=== PATIENT | male | born 1955 | race Caucasian/White ===

== ENCOUNTER 2020-12-31 12:52 | Outpatient (CLI) | payer MEDICARE, SELFPAY ==
[2020-12-31 14:26] LABS: INR 1.9
[2020-12-31 17:15] LABS: Hemoglobin A1C 6.6 % (<5.7)
== END 2020-12-31 12:53 | disposition home or self-care (01) ==
LOC: ANHSURGERY 12:56
PROVIDERS: Anesthesiology; PCP Family Medicine; Visit Provider Orthopaedic Surgery
DX: Z01.818 Encounter for other preprocedural examination (principal); M17.11 Unilateral primary osteoarthritis, right knee; Z79.01 Long term (current) use of anticoagulants
CPT/HCPCS: 36415; 83036; 85610; 85730; 87081

== ENCOUNTER → 2021-01-14 03:34 | Outpatient (CLI) | payer MEDICARE, SELFPAY ==
[2021-01-15 01:23] LABS: SARS-CoV-2 RNA PCR Negative
== END ==
PROVIDERS: PCP Family Medicine; Visit Provider Orthopaedic Surgery
DX: Z01.812 Encounter for preprocedural laboratory examination (principal); Z20.822 Contact with and (suspected) exposure to COVID-19
CPT/HCPCS: C9803; U0003; U0005

== ENCOUNTER 2021-01-17 01:10 | Day surgery (SDC) | payer MEDICARE, SELFPAY ==
[2020-12-31 12:59] VITALS: BMI 35.4
[2020-12-31 14:06] VITALS: BP 123/69; PULSE 85; RESP 16; TEMP 36.7; O2SAT 97
--- NOTE | 2021-01-16 16:06 | WPDANESEPPF ---
Anes - Initial Pre Proc Eval Procedure: Operation Date: 01/17/21 07:30 Proposed Procedures p Right Total Knee Arthroplasty - Enzo Winston MD Date/Time: 01/16/21 16:06 Surgeon: Enzo Winston MD Pre Op Diagnosis: primary OA Right Knee Patient Data Age: 65 Gender: M Height: 1.88 m Weight: 125 kg Last Vital Signs Temp 36.7 C 12/31/20 14:06 Pulse 85 12/31/20 14:06 Resp 16 12/31/20 14:06 BP 123/69 12/31/20 14:06 Pulse Ox 97 12/31/20 14:06 Allergies Allergy/AdvReac Type Severity Reaction Status Date / Time cefuroxime [From Ceftin] AdvReac Severe Hives Verified 01/17/21 06:25 tramadol AdvReac Severe Hives Verified 01/17/21 06:25 Home Medications Medication Instructions Recorded Confirmed Type aspirin 81 mg tablet,delayed 81 mg PO DAILY 05/29/20 01/17/21 History release calcium carbonate 600 mg calcium 600 mg PO DAILY 05/29/20 01/17/21 History (1,500 mg) tablet furosemide 40 mg tablet 40 mg PO BID 05/29/20 01/17/21 History metformin 500 mg tablet 500 mg PO DAILY 05/29/20 01/17/21 History multivitamin 1 tablet PO DAILY 05/29/20 01/17/21 History omega-3 fatty acids 1,000 mg 1,000 mg PO DAILY 05/29/20 01/17/21 History capsule potassium chloride 10 mEq 10 meq PO DAILY 05/29/20 01/17/21 History tablet,extended release warfarin 6 mg tablet 7 mg PO DAILY 05/29/20 01/17/21 History albuterol 90 mcg INHALATION PRN PRN 12/31/20 01/17/21 History diltiazem HCl 180 mg 240 mg PO DAILY cap 12/31/20 01/17/21 History capsule,extended release 24 hr oxycodone-acetaminophen 5 mg-325 1 tablet PO Q6H PRN 12/31/20 01/17/21 History mg tablet Patient hx anesthesia problems: none Family hx anesthesia problems: none PMFSH Past Medical History Medical History Afib COPD (chronic obstructive pulmonary disease) Diabetes Hypertension Surgical History Surgical History History of ankle surgery Lt ankle repair 1976 Lt ankle fused 2015 History of ankle surgery Rt ankle repair 1992 Rt ankle hardware removal 1993 History of arthroscopy of left knee (~1995) 1995 & 1997 History of arthroscopy of right knee (~2007) History of back surgery (~2012) Rods and screws put in History of elbow surgery (~2005) Left History of left knee surgery Metal plate 2002 History of repair of left rotator cuff (~1995) 1995 & 2005 History of repair of right rotator cuff (~1997) History of total knee arthroplasty (~2003) Left Hx of hammer toe correction (~1994) Social History Social History (Updated 01/17/21 @ 07:17 by Sharif Muller, ) Smoking packs per day: 1.5 Smoking cigarettes per day: 30.0 Years smoked: 20 Smoking pack-years: 30.00 Smoking status: Former smoker Tobacco type: cigarettes Smoking end date: 05/25/17 Additional smoking assessment comments: DENIES ANY FORM OF TOBACCO USE Alcohol intake: current Alcohol use details: 12-15 light beers/day Living arrangements: alone Spiritual care concerns: No Anes - Eval Final PreProcedure Day of Procedure 01/16/21 16:06 Patient weight: obese Heart: regular rate and rhythm Lungs: clear to auscultation and normal air movement Airway: Mallampati scale class II and special considerations poor dentition Neurological: alert and oriented Last oral intake: >/= 8 hours ASA classification: III Emergent: no Anesthetic plan: proceed Anesthesia type and monitoring: general LMA and standard monitoring Informed Consent: The patient's anesthetic plan and its attendant risks and benefits were discussed with the patient/family/POA. Questions were solicited and answers provided to the satisfaction of the patient/family/POA.
--- NOTE | 2021-01-16 16:07 | WPDANESPNB ---
Anes - Peripheral Nerve Block Date/Time: 01/16/21 16:07 <Sharif Muller DO - Last Filed: 01/16/21 16:07> I have discussed with the patient/family/POA the placement of a peripheral nerve block for post-operative pain management, including associated risks, benefits, complications, and side effects. Alternative methods of post-operative analgesia were detailed. Questions were solicited and answers provided to the satisfaction of the patient/family/POA. <Sharif Muller DO - Last Filed: 01/16/21 16:07> Time-Out: A pre-procedural Time-Out was completed immediately before starting the procedure and confirmed: Patient Identification, Site, Procedure, Patient Position and the Availability of Requisite Equipment. <Sharif Muller DO - Last Filed: 01/16/21 16:07> Clinical Indications: Acute post-operative pain management requested by the operative surgeon. <Sharif Muller DO - Last Filed: 01/16/21 16:07> Nerve Block Insertion Note Anes-nerve block: adductor canal <Sharif Muller DO - Last Filed: 01/16/21 16:07> adductor canal right <Jose Berry MD - Last Filed: 01/17/21 07:26> Patient position: supine <Sharif Muller DO - Last Filed: 01/16/21 16:07> supine <Jose Berry MD - Last Filed: 01/17/21 07:26> Skin prep: chlorhexidine <Sharif Muller DO - Last Filed: 01/16/21 16:07> chlorhexidine <Jose Berry MD - Last Filed: 01/17/21 07:26> Needle: 22 gauge, stimulating, insulated echogenic needle. <Sharif Muller DO - Last Filed: 01/16/21 16:07> Needle length: 80 mm <Sharif Muller DO - Last Filed: 01/16/21 16:07> 80 mm <Jose Berry MD - Last Filed: 01/17/21 07:26> Technique: ultrasound <Sharif Muller DO - Last Filed: 01/16/21 16:07> ultrasound <Jose Berry MD - Last Filed: 01/17/21 07:26> Technique comment: in plane <Jose Berry MD - Last Filed: 01/17/21 07:26> Injectate: bupivacaine 0.5% with epi 5 mcg/ml (30cc - no epi) <Sharif Muller DO - Last Filed: 01/16/21 16:07> bupivacaine 0.5% with epi 5 mcg/ml (30cc) <Jose Berry MD - Last Filed: 01/17/21 07:26> Observations: tolerated well <Sharif Muller DO - Last Filed: 01/16/21 16:07> tolerated well <Jose Berry MD - Last Filed: 01/17/21 07:26> Complications: none <Sharif Muller DO - Last Filed: 01/16/21 16:07> none <Jose Berry MD - Last Filed: 01/17/21 07:26> Procedure start time:: 722 <Joes Berry MD - Last Filed: 01/17/21 07:26> Procedure end time:: 726 <Jose Berry MD - Last Filed: 01/17/21 07:26>
[2021-01-17] VITALS (17 sets, daily range): BP systolic 116–164; BP diastolic 69–99; PULSE 67–92; RESP 14–20; TEMP 35.9–36.7; O2SAT 85–99
--- NOTE | ~2021-01-17 | XR_ITS ---
EXAMINATION: XR knee RT 2V DATE: 01/17/2021 11:08 INDICATION: Right knee arthroplasty. Postop. TECHNIQUE: 2 views of right knee were obtained. COMPARISON: Right knee radiographs 07/12/2020 FINDINGS: There is a total right knee arthroplasty with patellar resurfacing in near-anatomic alignme nt. No fracture. There is gas in the knee joint and soft tissues, consistent with recent surgery. IMPRESSION: 1. Total right knee arthroplasty in near-anatomic alignment. Reviewed, dictated and finalized at location A.
[2021-01-17] MEDS: ACETAMINOPHEN 500 MG TABLET 1000 MG PO (06:30)
[2021-01-17] MEDS: LACTATED RINGERS 1,000 ML 30 ML IV CONT ×2 (06:50→11:13)
[2021-01-17 07:03] LABS: Glucose Point of Care 159 mg/dl (65-105)
[2021-01-17] MEDS: TRANEXAMIC ACID 1,000MG/ISO100 1,000 MG/100 ML BAG 200 MG IVPB (07:05)
--- NOTE | 2021-01-17 07:18 | WPDHPUPDATE1 ---
History and Physical Update Update Date/Time: 01/17/21 07:18 History and Physical has been reviewed, including an updated exam of the patient. There are NO changes in the patient's condition. Risks, benefits, and alternatives have been discussed and questions answered. Patient agrees to proceed with procedure.
[2021-01-17] MEDS: ceFAZolin SODIUM 1 GM VIAL 2 GM IV PUSH (07:43)
--- NOTE | 2021-01-17 08:16 | SUR.PREOP ---
0630-PT STATES FELL ON 12/29/2020 W/INJURY TO BACK, NECK, AND LEFT HIP-STATES HAD ER VISIT AND NO FRACTURES WERE DETECTED. STATES DR. JENSEN IS AWARE OF FALL.
[2021-01-17] MEDS: GENTAMICIN BONE CEMENT REFOBACIN 1 EACH TOPICAL (10:04)
--- NOTE | 2021-01-17 10:58 | W.PM.PROC2 ---
Procedure Note - Detailed Date of Procedure 01/17/21 Pre-op Diagnosis primary OA Right Knee Post-op Diagnosis same Procedure Performed Total knee arthroplasty, right. Surgeon Enzo Winston MD Insurance Broker Jo Ann Crowley PA-C Anesthesia general and regional (Subsartorial block.) Indications Severe end-stage valgus arthritis with significant deformity. Failed conservative treatment. Findings Complex arthroplasty. Evidence for chronic MCL insufficiency. Severe valgus deformity. Large lateral release required. Moderate residual MCL laxity managed with total stabilizing polyethylene insert. Bone quality was excellent. The femur was placed at 5? valgus. Preop motion was 5? to 95? with 20 degree valgus deformity. Postoperative motion 0-125 degrees. Description of Procedure OPERATIVE DETAILS: The patient was given a nerve block preoperatively, and then brought to the operating room. A general anesthetic was administered. The leg was prepped and draped in the usual sterile fashion. The limb was elevated and the tourniquet inflated to 300 mmHg during the procedure. A longitudinal incision was created along the medial border of the patella and patellar tendon, and a medial parapatellar approach to the knee was performed. No medial release was taken due to the valgus deformity and MCL laxity. Significant scar and osteophytes were in the MCL and medial capsule. Theses were removed cautiously. The knee was then flexed. The osteophytes were carefully removed. The intramedullary guide was placed in the femoral canal. The distal femoral resection was then taken with the oscillating saw. The collateral ligaments were carefully protected. The tibia was carefully exposed. The jig was applied, and the proximal tibia was resected according to the preoperative plan. The knee was balanced in extension. The medial laxity was apparent. Significant lateral release was required with pie crusting the LCL both at the tibia side and at the femoral attachment. Popliteus was excised. The iliotibial band was also released. The anterior cruciate ligament and meniscal remnants were removed. The posterior cruciate ligament was sacrificed. The patella was measured. Patellar resection was carried out with the oscillating saw. The femur was sized and rotation assessed using a combination of gap balancing, posterior referencing, and the AP axis. The 4 in 1 cutting block, and the box cut guide were used to finish the femoral cuts after equal gaps were assured. The osteophytes were carefully removed from the back of the knee. The knee was copiously irrigated with antibiotic solution periodically throughout the procedure. The meniscal remnants were removed. The spacer block was used to confirm equal flexion and extension gaps. Trialing was performed to confirm tibial rotation. Further lateral release was performed. He was clear that the 13 mm poly was possible but that 16 mm poly was not reasonable for the lateral side. The MCL remains moderately lax with the 13 poly. It was elected to support the MCL with a total stabilizing poly insert. The tibia was sized and broached. Central drilling for the short stem was performed. The bony surfaces were prepared for cementing with pulsatile lavage. The real components were cemented. Excess cement was carefully removed. Patellar tracking was carefully assessed. No additional releases were required. The real 13 mm TS poly insert was placed. The wound was closed with #1 Vicryl suture, #2 Quill suture, 0-Quill suture, and 2-0 Quill suture followed by Steri-Strips. A sterile bulky dressing was applied. Meticulous hemostasis was maintained throughout the procedure. There were no complications. The patient was extubated and brought to the recovery room in stable condition after the application of sterile dressing with Adonay bandage. Physician assistant spa director, Jo Ann Crowley PA-C, required for surgery; including patient positioning, draping, tis
[2021-01-17 11:04] LABS: Glucose Point of Care 182 mg/dl (65-105)
--- NOTE | 2021-01-17 13:20 | ADMGEN ---
This patient, Wiliam Alvarez , was admitted to Medical Room 257-01. Patient/family oriented to hospital policies and general routines including ID bracelet, bed and alarms, visiting hours, pain management, procedures, bathroom and other care routines, personal items, smoking policy, room service/diet, and visiting hours. Information on how to activate the Rapid Response Team has been discussed. Patient/Family are encouraged to report perceived risks to care and to ask questions if they do not understand what they are told or what they should do.
[2021-01-17] MEDS: ceFAZolin 2 GM/D5W 50 ML 2 GM/50 ML BAG IVPB ×2 (14:19→22:35)
[2021-01-17 14:36] LABS: Glucose Point of Care 169 mg/dl (65-105)
[2021-01-17] MEDS: oxyCODONE HCL (*CRX) 5 MG TAB IR PO ×2 (14:49→20:11)
--- NOTE | 2021-01-17 15:47 | PM.IMCN ---
Assessment and Plan Assessment and plan (1) Obesity (BMI 30.0-34.9): Code(s): E66.9 - Obesity, unspecified Status: Acute (2) Emphysema lung: Code(s): J43.9 - Emphysema, unspecified Status: Acute Additional Plan This is a 65-year-old gentleman with a past medical history of atrial fibrillation, ex- chronic smoker, COPD disease/panlobular emphysema, current ETOH use, obesity who is currently admitted after a right knee total arthroplasty. The hospital medicine service is consulted for management of his chronic conditions. 1. Atrial fibrillation: Currently rate control with diltiazem continue diltiazem 240 mg p.o. q.d. Continue chronic anticoagulation with warfarin 7 mg p.o. daily. We will monitor his INR closely. 2. Chronic COPD not previously on oxygen at home. I would patient only uses in a PRN albuterol inhaler as needed twice per month pureed continue albuterol inhaler every 4 hours as needed. 3. Fws-lsvhhni-okorlyiob diabetes mellitus; please see well controlled on metformin monotherapy at home. Most recent Hba1c 6.6 1 week ago. Hold metformin while admitted to the hospital. I would start insulin sliding scale coverage coma mealtime insulin and basal insulin. Monitor his Accu-Cheks closely. 4. Obesity calculated BMI is 35.4. I would recommend low-calorie diet and exercise upon discharge. 5. Chronic alcohol use: with documented 12-15 light beers per day. Start CIWA protocol. I would monitor the mental status closely while in the hospital. Maintain fall and seizures precautions. Counseling about alcohol consumption reduction. 6. GI prophylaxis not indicated. 7. DVT prophylaxis patient is already on Coumadin at 7 mg p.o. daily. I would will monitor his INR closely. HPI Data of Consult Consult date: 01/17/21 Requesting Physician: Enzo Winston MD Primary Care Provider: Chris NoeMD Consult Narrative Narrative: Wiliam Alvarez Sr. is a 65 year old gentleman with a past medical history including but not limited to atrial fibrillation on chronic anticoagulation with Coumadin, COPD/ panbular emphysema, ex chronic smoker who stopped 3 years ago, obesity, eta-dsscncr-slhztfkyf diabetes mellitus, currently admitted status post right knee total arthroplasty. The hospital medicine service is consulted for management of his chronic conditions. The patient cheryl examined the bedside in the seated position after his orthopedic procedure. He is reporting chronic neck and left hip pain. I would he reports good control of his postoperative pain and rates surgical incision pain at 3/10. There is no active complaint. Patient is pleasant and conversant. Review of Systems Review of Systems: CONSTITUTIONAL: Negative for any fevers, chills, night sweats, tiredness, fatigue, malaise, anorexia or weight loss. CARDIOVASCULAR: Negative for chest pain, palpitations, dizziness, orthopnea. Mild lower extremity edema. RESPIRATORY: Negative for shortness of breath, cough, wheezing, sputum. GENITOURINARY: Negative for frequency, nocturia, dysuria, hematuria. HEMATOLOGIC: Negative for any abnormal bleeding or bruising. MUSCULOSKELETAL: Negative for joint swelling, stiffness or pain. Right knee with post surgical dressing. SKIN: Negative for rashes, eruptions, lesions or dryness. NEUROLOGIC: Negative for any focal neurologic complaints. PSYCHIATRIC: Negative for anxiety, panic, depression. [facility] Past Medical History Medical History Afib COPD (chronic obstructive pulmonary disease) Diabetes Hypertension Surgical History Surgical History History of ankle surgery Lt ankle repair 1976 Lt ankle fused 2015 History of ankle surgery Rt ankle repair 1992 Rt ankle hardware removal 1993 History of arthroscopy of left knee (~1995) 1995 & 1997 History of arthroscopy of right knee (
[2021-01-17] MEDS: MELOXICAM 7.5 MG TABLET PO (16:14)
[2021-01-17] MEDS: FUROSEMIDE 40 MG TABLET PO (16:14)
[2021-01-17] MEDS: WARFARIN (*PBKC) 4 MG TABLET PO (16:14)
[2021-01-17] MEDS: WARFARIN (*PBKC) 3 MG TABLET PO (16:14)
[2021-01-17 17:20] LABS: Glucose Point of Care 208 mg/dl (65-105)
[2021-01-17] MEDS: INSULIN ASPART (*BKC) 100 UNITS/ML SUB-Q (17:22)
[2021-01-17] MEDS: FAMOTIDINE 20 MG TABLET PO (20:10)
[2021-01-17] MEDS: SENNOSIDES 8.6 MG TABLET 17.2 MG PO (20:11)
[2021-01-17] MEDS: INSULIN GLARGINE (*BKC) 100 UNITS/ML 12 UNITS SUB-Q (20:14)
[2021-01-17 20:27] LABS: Glucose Point of Care 141 mg/dl (65-105)
[2021-01-18] VITALS: BP 125/82
[2021-01-18 00:08] VITALS: BP 125/82; PULSE 86; RESP 20; TEMP 36.2; O2SAT 95
[2021-01-18 05:21] VITALS: BP 151/81; PULSE 72; RESP 20; TEMP 36.1; O2SAT 91
[2021-01-18 06:10] LABS: Basophils Percent Auto 0.4 % (0.2-1.2); Eosinophils Percent Auto 0.2 % (0-4.4); Hematocrit 40.4 % (42.0-52.0); Hemoglobin 13.1 g/dL (14.0-18.0); Immature Granulocyte Absolute 0.04 K/mm3 (0.00-0.031); Immature Granulocyte Percent A 0.4 % (0-0.5); Lymphocytes Absolute Auto 1.23 K/mm3 (0.9-3.2); Lymphocytes Percent Auto 12.2 % (18.3-44.2); Mean Corpuscular HGB Conc 32.4 g/dl (32-36); Mean Corpuscular Hemoglobin 33.4 pg (26-34); Mean Corpuscular Volume 103.1 fl (80-100); Mean Platelet Volume 9.3 fl (7.4-10.4); Monocytes Absolute Auto 1.2 K/mm3 (0.1-0.6); Neutrophils Absolute Auto 7.6 K/mm3 (1.3-6.7); Neutrophils Percent Auto 74.8 % (45.5-73.1); Platelet Count Result 188 k/mm3 (150-375); Red Blood Count 3.92 M/mm3 (4.6-6.20); Red Cell Distribution Width 12.7 % (11.5-14.5); White Blood Count 10.1 K/mm3 (4.5-10.0)
[2021-01-18 06:18] LABS: INR 1.1; Prothrombin Time 13.6 Seconds (11.1-14.7)
[2021-01-18] MEDS: ceFAZolin 2 GM/D5W 50 ML 2 GM/50 ML BAG IVPB (06:18)
[2021-01-18 06:28] LABS: Anion Gap 1 mmol/L (8-16); Blood Urea Nitrogen 29 mg/dL (9-20); Calcium 8.5 mg/dL (8.4-10.2); Carbon Dioxide 36 mmol/L (22-30); Chloride 99 mmol/L (98-107); Estimated CRCL calculation 101 ml/min; Estimated Glomerular Filt Rate > 60; Glucose 137 mg/dL (65-110); Potassium 4.9 mmol/L (3.4-5.0); Sodium 136 mmol/L (137-145)
[2021-01-18 07:24] LABS: Glucose Point of Care 124 mg/dl (65-105)
[2021-01-18] MEDS: FUROSEMIDE 40 MG TABLET PO (07:52)
[2021-01-18] MEDS: FAMOTIDINE 20 MG TABLET PO (07:52)
[2021-01-18] MEDS: OMEGA 3 POLYUNSAT FATTY ACIDS 1 GM CAP PO (07:52)
[2021-01-18] MEDS: MULTIVITAMINS THERAPEUTIC TAB (*BKC) 1 TABLET PO (07:52)
[2021-01-18] MEDS: oxyCODONE HCL (*CRX) 5 MG TAB IR PO ×2 (07:53→14:07)
[2021-01-18] MEDS: POTASSIUM CHLORIDE 10 MEQ TABLET.ER PO (07:53)
[2021-01-18] MEDS: MELOXICAM 7.5 MG TABLET PO (07:53)
[2021-01-18] MEDS: CALCIUM CARBONATE (OSCAL) 500 MG TABLET PO (07:53)
[2021-01-18 10:07] VITALS: BP 150/80; PULSE 70; RESP 20; TEMP 36; O2SAT 92
--- NOTE | 2021-01-18 10:18 | PM.DS ---
DS: Admitting Diagnosis Admitting Diagnosis OA knee Right DS: Discharge Diagnosis Discharge Diagnosis (1) Orthopedic aftercare for joint replacement: Code(s): Z47.1 - Aftercare following joint replacement surgery Status: Acute (2) Status post total right knee replacement: Code(s): Z96.651 - Presence of right artificial knee joint Status: Acute Assessment and Plan: Postop day 1: Right total knee arthroplasty. Patient tolerated procedure well. No complications. Patient had a severe Valgus deformity prior to surgery. Large lateral release required. Patient understands that he may have some bruising. He will call the office with any questions or concerns. Pain manageable with pain medication. No numbness or tingling. We had a lengthy discussion regarding postoperative wound care, limitations, expectations, and exercises. Patient shows good understanding. He has had initial physical therapy and is tolerating it well. DVT prophylaxis: Continue Home warfarin and Aspirin dose. Also encourage short frequent walks. Pain medication: Percocet. Pain control will be difficult. He is on chronic pain medications. Also gave Meloxicam. Patient at high risk for infection due to prior infection and pao satis. Prescribed Keflex for 2 weeks. He tolerated Ancef without allergy. Take Benadryl if allergic reaction or go to ER. Patient has followup appointment with Dr. Winston in 3 weeks. DS: Summary Hospital Course Reason for hospitalization: Total knee arthroplasty Hospital Course: Patient tolerated procedure well. Has had initial PT/OT. No complications. Pain well managed. Status at Discharge Functional status at discharge: uses cane/walker Overall status at discharge: patient is progressing back to baseline Time Spent with Patient Time attestation: Total time spent providing and/or coordinating discharge services: Exam Narrative: Overweight Male. Resting comfortably in chair. No acute distress. A&O x3. Wearing compression socks bilaterally. Dressing intact with no drainage. Moderate swelling. Mild ecchymosis. No erythema. No hematoma. Good early range of motion. 10-80 degrees. Calf nontender. Neurologic status intact. No varicosities. Distal pulses palpable. DS: Data Data Completed and Pending Labs on day of discharge: Labs from last 24 hours 01/18/21 01/18/21 01/18/21 07:20 05:45 05:45 WBC RBC Hgb Hct MCV MCH MCHC RDW Plt Count MPV Immature Gran % (Auto) Neut % (Auto) Lymph % (Auto) Howell % (Auto) Eos % (Auto) Baso % (Auto) Lymph # (Auto) Howell # (Auto) Eos # (Auto) Baso # (Auto) Abs Immat Gran (auto) Absolute Neuts (auto) Absolute Nucleated RBC Nucleated RBC % PT 13.6 INR 1.1 Sodium 136 L Potassium 4.9 Chloride 99 Carbon Dioxide 36 H Anion Gap 1 L BUN 29 H Creatinine 0.90 Estim Creat Clear Calc 101 Estimated GFR > 60 Glucose 137 H POC Capillary Glucose 124 H Calcium 8.5 01/18/21 01/17/21 01/17/21 05:45 20:09 17:15 WBC 10.1 H RBC 3.92 L Hgb 13.1 L Hct 40.4 L MCV 103.1 H MCH 33.4 MCHC 32.4 RDW 12.7 Plt Count 188 MPV 9.3 Immature Gran % (Auto) 0.4 Neut % (Auto) 74.8 H Lymph % (Auto) 12.2 L Howell % (Auto) 12.0 H Eos % (Auto) 0.2 Baso % (Auto) 0.4 Lymph # (Auto) 1.23 Howell # (Auto) 1.2 H Eos # (Auto) 0.0 Baso # (Auto) 0.0 Abs Immat Gran (auto) 0.04 H Absolute Neuts (auto) 7.6 H Absolute Nucleated RBC 0.0 Nucleated RBC % 0.0 PT INR Sodium Potassium Chloride Carbon Dioxide Anion Gap BUN Creatinine Estim Creat Clear Calc Estimated GFR Glucose POC Capillary Glucose 141 H 208 H Calcium 01/17/21 01/17/21 14:26 10:57 WBC RBC Hgb Hct MCV MCH MCHC RDW Plt Count MPV Immature Gran % (Auto)
[2021-01-18 11:35] LABS: Glucose Point of Care 114 mg/dl (65-105)
[2021-01-18 12:43] VITALS: O2SAT 94
--- NOTE | 2021-01-18 19:47 | PM.IMPN ---
Progress Note: A&P Assessment and Plan (1) Obesity (BMI 30.0-34.9): Code(s): E66.9 - Obesity, unspecified Status: Acute (2) Emphysema lung: Code(s): J43.9 - Emphysema, unspecified Status: Acute Additional Plan This is a 65-year-old gentleman with a past medical history of atrial fibrillation, ex- chronic smoker, COPD disease/panlobular emphysema, current ETOH use, obesity who is currently admitted after a right knee total arthroplasty. The hospital medicine service is consulted for management of his chronic conditions. 1. Atrial fibrillation: Currently rate control with diltiazem continue diltiazem 240 mg p.o. q.d. Continue chronic anticoagulation with warfarin 7 mg p.o. daily. INR is subtherapeutic at 1.1 today. Follow up INR on Thursday with his PCP. 2. Chronic COPD not previously on oxygen at home. I would patient only uses in a PRN albuterol inhaler as needed twice per month pureed continue albuterol inhaler every 4 hours as needed. 3. Zso-mzymvyb-tbpyrvvgu diabetes mellitus;previously well controlled on metformin monotherapy at home. Most recent Hba1c 6.6 1 week ago. We held metformin while admitted to the hospital. Resume metformin at previous dose upon discharge. 4. Obesity calculated BMI is 35.4. I would recommend low-calorie diet and exercise upon discharge. 5. Chronic alcohol use: with documented 12-15 light beers per day. Start CIWA protocol. I would monitor the mental status closely while in the hospital. Maintain fall and seizures precautions. Counseling about alcohol consumption reduction. 6. GI prophylaxis not indicated. 7. DVT prophylaxis patient is already on Coumadin at 7 mg p.o. daily. Monitor INR as an outpatient. Subjective Date/time seen: 01/18/21 11:55 This is a 65-year-old gentleman with a past medical history of atrial fibrillation, ex- chronic smoker, COPD disease/panlobular emphysema, current ETOH use, obesity who is currently admitted after a right knee total arthroplasty. The surgery was uneventful. Patient is being discharged home with scheduled PT on POD1. Exam Narrative: GENERAL: The patient is awake, alert and oriented, in no apparent distress. He is pleasant and conversant in full sentences. Pain 3/10. HEENT: Pupils are equally round and briskly reactive to light. Extraocular muscles are intact. Oral mucous membranes are moist without lesions. NECK: The patient has no noted JVD. CHEST/LUNGS: Lungs are clear bilaterally without rhonchi, rales, or wheezes. There is no subcutaneous air appreciated. There is no tenderness to the chest wall. HEART: The patient has a irregularly irregular rate and rhythm. No murmurs, rubs, or gallops are appreciated. Distal pulses are 2+. No carotid bruits appreciated. ABDOMEN: The patient?s abdomen is obese, soft, nontender, and nondistended. Bowel sounds are positive. EXTREMITIES: The patient right knee: post surgical dressing in place. Left knee: no focal tenderness or deformity. SKIN: The patient?s skin is warm and dry, without rashes or lesions. PSYCHIATRIC: The patient has normal mental status and has an appropriate affect. NEUROLOGIC: The patient has 5/5 strength to the upper and lower extremities bilaterally. Sensation is intact throughout. Gait testing and deep tendon reflexes testing are deferred. There are no gross deficits to the cranial nerves. Objective Data Vital Signs Vital Signs: Vital Signs - 24 hr 01/17/21 20:00 01/17/21 20:53 01/18/21 00:00 Temperature 98 F Pulse Rate 92 92 Respiratory Rate 20 20 Blood Pressure 116/72 125/82 Pulse Oximetry 99 99 01/18/21 00:08 01/18/21 05:21 01/18/21 10:07 Temperature 97.1 F L 96.9 F L 96.8 F L Pulse Rate 86 72 70 Respiratory Rate 20 20 20 Blood Pressure 125/82 151/81 H 150/80 H Pulse Oximetry 95 91 92 01/18/21 12:43 Temperature Pulse Rate Respiratory Rate Blood Pressure Pulse Oximetry 94 Intake/Output Intake/Output: Intake & Output 01/15/21 08
== END 2021-01-18 14:28 | disposition home or self-care (01) ==
LOC: ANHSURGERY 06:04 → ANH2MED 13:05
PROVIDERS: Anesthesiology; Internal Medicine; Physician Assistant Surgical; PCP Family Medicine; Visit Provider Orthopaedic Surgery
PROC: (CPT 27447; principal; 2021-01-17 07:30)
DX: M17.11 Unilateral primary osteoarthritis, right knee (principal); G89.18 Other acute postprocedural pain; Z79.82 Long term (current) use of aspirin; Z79.01 Long term (current) use of anticoagulants; Z79.51 Long term (current) use of inhaled steroids; I48.91 Unspecified atrial fibrillation; E11.9 Type 2 diabetes mellitus without complications; J44.9 Chronic obstructive pulmonary disease, unspecified; I10 Essential (primary) hypertension; Z87.891 Personal history of nicotine dependence; E66.9 Obesity, unspecified; Z68.35 Body mass index [BMI] 35.0-35.9, adult
CPT/HCPCS: 64447; 27447; 36415; 73560; 80048; 82948; 83036; 85025; 85610; 85730; 86850; 86900; 86901; 87081; 97110; 97116; 97161; 97165; 97535; A9270; C1713; C1776; C9803; J0131; J0171; J0690; J1100; J1815; J1885; J2250; J2270; J2405; J2704; J2795; J3010; J7120; U0003; U0005